=== PATIENT | female | born 1990 | race Caucasian/White ===

== ENCOUNTER 2025-01-27 22:17 | Emergency (ER) | payer OTHER ==
[2025-01-27 22:37] VITALS: TEMP 96.9; O2SAT 99
--- NOTE | 2025-01-27 23:12 | ERPHSYRPT ---
- History of Present Illness Source: patient Exam Limitations: no limitations Patient Subjective Stated Complaint: Grandmother of pt states, "She takes humalog and lantus and I accidently gave her the dose of the humalog thinking it was her lantus dose. I gave her 25 units about an hour". Triage Nursing Assessment: Pt presents to ER with her caregiver (grandmother) who states she accidentally administered her 25 units of fast acting insulin because she mistakenly got the scales mixed up. Pt is alert and denies any pain or discomfort. Pt respirations are easy. Skin is pink, warm, and dry. Pt has downs syndrome and caregiver states she is acting normal at this time. Last oral intake around 1900. Physician History: Patient was accidentally given 25 units of insulin regular tonight instead of 12. They panicked brought her in. She has a continuous glucose monitor. She got down to about 70. They then started giving her foods. Whenever I went in there her sugar was up to 250. She was eating crackers and juice.She has no complaints.She is essentially asymptomatic Timing/Duration: today Allergies/Adverse Reactions: No Known Drug Allergies Allergy (Verified 01/27/25 22:37) Home Medications: Atorvastatin Calcium 20 mg PO DAILY 01/27/25 [History] Empagliflozin [Jardiance] 25 mg PO DAILY 01/27/25 [History] Insulin Lispro [Admelog Solostar] 100 unit SQ TIDWMEALS 01/27/25 [History] Montelukast Sodium 10 mg [Singulair 10 MG] 10 mg PO DAILY 01/27/25 [History] Hx Tetanus, Diphtheria Vaccination/Date Given: Yes Hx Influenza Vaccination/Date Given: Yes Hx Pneumococcal Vaccination/Date Given: No Immunizations Up to Date: Yes Travel Risk - International Travel Have you traveled outside of the country in past 3 weeks: No - Emerging Infectious Disease Are you exhibiting symptoms associated with any current EIDs: No - Review of Systems Constitutional: No Symptoms Eyes: No Symptoms All Other Systems: Reviewed and Negative - Past Medical History Pertinent Past Medical History: Yes Neurological History: No Pertinent History ENT History: No Pertinent History Cardiac History: High Cholesterol Respiratory History: No Pertinent History Endocrine Medical History: Diabetes Type II Musculoskeletal History: No Pertinent History GI Medical History: No Pertinent History History: No Pertinent History Psycho-Social History: Other Female Reproductive Disorders: No Pertinent History Other Medical History: varicose veins, down syndrome - Past Surgical History Past Surgical History: No - Female History Hx Last Menstrual Period: n/a Hx Now: No - Social History Smoking Status: Never smoker Exposure to second hand smoke: No Drug Use: none - Social Determinants of Health Will the patient participate in the screening: Yes Do you worry about a steady place to live?: No Do you have any problems with any of the following?: No known problems In the past 12 months,have you had to go without utilities?: No Transportation Issues: No Has anyone in your support network made you feel unsafe?: No Have you or anyone in your house had to go w/o enough food: No - Nursing Vital Signs Nursing Vital Signs: Initial Vital Signs Temperature 96.9 F 01/27/25 22:31 Pulse Rate 60 01/27/25 22:31 Respiratory Rate 18 01/27/25 22:31 Blood Pressure 157/94 01/27/25 22:31 O2 Sat by Pulse Oximetry 99 01/27/25 22:31 Pain Scale Pain Intensity 0 - Physical Exam General Appearance: no apparent distress Respiratory Exam: normal breath sounds Cardiovascular Exam: regular rate/rhythm Gastrointestinal/Abdomen Exam: soft Skin Exam: normal color SpO2: 99 - Progress Progress: improved Progress Note: Patient was monitored. She has a continuous glucose monitor. She went from 80s up to 250 pretty quickly I told him to stop eating and we observe her for about 45 minutes. Her sugars normalized and she was discharged to home. 01/27/25 23:11 - Departure Departure Disposition: Home Clinical Impression: Diabetes Condition: Stable Critical Care Time: No Referrals: MIGUEL POLANCO MD [Primary Care Provider, [facility]NAL [facility]] - Follow up/PCP as directed Instructions: Low Blood Sugar, Adult (DC)
[2025-01-27 23:26] VITALS: BP 121/70; PULSE 58; RESP 19
== END 2025-01-27 23:34 | disposition home or self-care (01) ==
LOC: ED 22:17
DX: E11.649 Type 2 diabetes mellitus with hypoglycemia without coma (principal); Z79.84 Long term (current) use of oral hypoglycemic drugs; Z79.4 Long term (current) use of insulin; Z79.899 Other long term (current) drug therapy
CPT/HCPCS: 99281